=== PATIENT | female | born 1980 | race African-American/Black ===

== ENCOUNTER 2018-08-23 13:37 | Emergency (ER) | payer OTHER ==
[~2018-08-23] VITALS: Ht 160 cm; Wt 59.0 kg
[2018-08-23 13:44] VITALS: BP 124/68
--- NOTE | 2018-08-23 13:44 | NUR ---
LEFT UPPER BACK PAIN RADIATING TO LEFT LOWER CHEST X 3 DAYS. DENIES TRAUMA. NO FEVER OR ANY INJURY. PT SITTING ON BED. PAIN 09/16. MD TO SEE PT. WILL CONTINUE TO MONITTOR PT. MED HX: DENIES
--- NOTE | 2018-08-23 13:54 | NUR ---
VSS, WAIT IN LOBBY
--- NOTE | 2018-08-23 14:09 | NUR ---
patient ambulated to bed 5
[2018-08-23] MEDS ORDERED: diphenhydrAMINE 50 MG/ML VIAL IM ONE (15:05)
[2018-08-23] MEDS ORDERED: MORPHINE SULFATE 4 MG/ML SYR IM ONE (15:05)
[2018-08-23] MEDS ORDERED: KETOROLAC 60 MG/2 ML VIAL IM ONE (15:05)
[2018-08-23 15:55] LABS: APPEARANCE,URINE CLEAR (CLEAR); BILIRUBIN,URINE NEGATIVE (NEGATIVE); BLOOD, URINE TRACE-L (NEGATIVE); COLOR,URINE YELLOW (YELLOW); LEUKOCYTE ESTERASE ,URINE NEGATIVE (NEGATIVE); NITRITE, URINE NEGATIVE (NEGATIVE); PH,URINE 6.5 (5.0-9.0); UGLUCOSE NEGATIVE (NEGATIVE)
[2018-08-23 17:00] VITALS: BP 137/84
--- NOTE | 2018-08-23 17:00 | NUR ---
Patient discharged with v/s stable. Written and verbal after care instructions given and explained. Patient alert, oriented and verbalized understanding of instructions. Ambulatory with steady gait. All questions addressed prior to discharge. ID band removed. Patient advised to follow up with PMD. Rx of MOTRIN AND TRAMADOL given. Patient educated on indication of medication including possible reaction and side effects. Opportunity to ask questions provided and answered.
[2018-08-23 17:02] LABS: BARBITURATE, URINE NEG. ng/ml (NEG <=200); BENZODIAZEPINE, URINE NEG. ng/mL (NEG <=200); CANNABINOID, URINE POS. ng/mL (NEG <=50); COCAINE, URINE NEG. ng/mL (NEG <=300); OPIATE, URINE NEG. ng/mL (NEG <=2000); PHENCYCLIDINE SCREEN,URINE NEG. ng/mL (NEG <=25)
== END 2018-08-23 17:00 | disposition home or self-care (01) ==
LOC: MED 13:37
DX: S46.912A Strain of unspecified muscle, fascia and tendon at shoulder and upper arm level, left arm, initial encounter (principal); M54.6 Pain in thoracic spine; Z88.0 Allergy status to penicillin; Z88.2 Allergy status to sulfonamides; Z88.1 Allergy status to other antibiotic agents; Z88.8 Allergy status to other drugs, medicaments and biological substances; X58.XXXA Exposure to other specified factors, initial encounter; Y93.89 Activity, other specified; Y92.89 Other specified places as the place of occurrence of the external cause; Y99.8 Other external cause status
CPT/HCPCS: 71046; 80305; 81003; 81025; 96372; 99284; J1200; J1885; J2270

== ENCOUNTER 2019-01-26 12:03 | Emergency (ER) | payer OTHER ==
[~2019-01-26] VITALS: Ht 162.6 cm; Wt 54.4 kg
[2019-01-26 12:24] VITALS: BP 138/101
--- NOTE | 2019-01-26 12:26 | NUR ---
Patient ambulated to bed 12. RN evaluating patient at bedside.
--- NOTE | 2019-01-26 12:43 | NUR ---
PT BIB SELF C/O LOWER ABD PAIN X LAST NIGHT. PT REPORTS SHARP LOWER ABD PAIN THAT RADIATES TO BUTTOCKS WHEN SITTING DOWN AND RADIATES TO PELVIC REGION DURING UNATION AT, PAIN AT 7/10. ABD IS SOFT, FLAT, TENDER TO TOUCH IN ALL REGIONS, BOWEL SOUNDS ACTIVE X4 QUADRANTS. - N/V/D, - FEVER, - CONSTIPATION. LAST BM 01/25/19. DENIES EATING ANYTHING UNUSUAL. VSS. ER MD TO SEE PT. MEDHX:HYPERTENSION RX:DENIES
[2019-01-26] MEDS ORDERED: KETOROLAC 60 MG/2 ML VIAL IM ONE (13:15)
--- NOTE | 2019-01-26 13:22 | NUR ---
LAB AT BEDSIDE
[2019-01-26 13:35] LABS: EOSINOPHILS % (AUTO) 0.8 % (0.0-4.0); HEMATOCRIT 39.2 % (36-48); HEMOGLOBIN 12.9 g/dL (12.0-16.0); LYMPHOCYTES # (AUTO) 2.1 K/uL (2.5-16.5); LYMPHOCYTES % (AUTO) 51.7 % (20.5-51.1); MEAN CORPUSCULAR HEMOGLOBIN 29 pg (27-31); MEAN CORPUSCULAR HGB CONC 33 g/dL (33-37); MEAN CORPUSCULAR VOLUME 87.9 fL (80-94); MONOCYTES # (AUTO) 0.5 K/uL (0.8-1.0); MONOCYTES % (AUTO) 11.5 % (1.7-9.3); NEUTROPHILS # (AUTO) 1.4 K/uL (1.8-7.7); PLATELET COUNT (AUTO) 178 K/uL (140-450); RED BLOOD CELL COUNT(AUTO) 4.46 MIL/uL (4.20-5.40); RED CELL DISTRIBUTION WIDTH 13.3 % (11.6-13.7); WHITE BLOOD COUNT (AUTO) 4.1 K/uL (4.8-10.8)
--- NOTE | 2019-01-26 13:37 | NUR ---
ULTRASOUND AT BEDSIDE
[2019-01-26 13:44] LABS: APPEARANCE,URINE HAZY (CLEAR); BILIRUBIN,URINE NEGATIVE (NEGATIVE); BLOOD, URINE NEGATIVE (NEGATIVE); COLOR,URINE YELLOW (YELLOW); LEUKOCYTE ESTERASE ,URINE NEGATIVE (NEGATIVE); NITRITE, URINE NEGATIVE (NEGATIVE); PH,URINE 6.5 (5.0-9.0); UGLUCOSE NEGATIVE (NEGATIVE)
[2019-01-26 13:54] LABS: ANION GAP 13.8 (8-16); CARBON DIOXIDE 26.2 mmol/L (21-32); CREATININE 0.7 mg/dL (0.6-1.3)
[2019-01-26 14:01] LABS: ALBUMIN 3.6 g/dL (3.4-5.0); TOTAL BILIRUBIN 0.4 mg/dL (0.0-1.0)
--- NOTE | 2019-01-26 14:46 | NUR ---
PT RESTING IN BED, TALKING ON PHONE, AAOX4, COOPERATIVE. PT REPORTS ABD PAIN AT TOLERABLE 2/10 AT REST AND INCREASES TO 5/10 WITH TOUCH. VSS.
[2019-01-26 15:13] VITALS: BP 154/80
[2019-01-28 06:09] LABS: CHLAMYDIA TRACHOMATIS AMP DNA Negative (Negative)
== END 2019-01-26 15:13 | disposition home or self-care (01) ==
LOC: MED 12:03
DX: N83.201 Unspecified ovarian cyst, right side (principal); F17.210 Nicotine dependence, cigarettes, uncomplicated; F12.90 Cannabis use, unspecified, uncomplicated; Z88.0 Allergy status to penicillin; Z88.2 Allergy status to sulfonamides; Z88.6 Allergy status to analgesic agent; Z88.1 Allergy status to other antibiotic agents; Z71.6 Tobacco abuse counseling
CPT/HCPCS: 36415; 76830; 80053; 81003; 81025; 83690; 85025; 87491; 93976; 96372; 99284; J1885; Q0092